=== PATIENT | female | born 1945 | race Caucasian/White ===

== ENCOUNTER 2018-04-01 12:16 | Outpatient (CLI) | payer MEDICARE | END 2018-04-01 12:17 | disposition home or self-care (01) | LOC: BICMAMMO 12:16 | PROVIDERS: ATTEND Nurse Practitioner Family | DX: Z12.31 Encounter for screening mammogram for malignant neoplasm of breast (principal); R92.1 Mammographic calcification found on diagnostic imaging of breast; Z80.3 Family history of malignant neoplasm of breast | CPT/HCPCS: 77063; 77067 ==

== ENCOUNTER 2018-12-11 11:05 | Outpatient (CLI) | payer MEDICARE ==
--- NOTE | 2018-12-11 11:33 | RAD ---
XR Knee Lt 4 View STANDARD HISTORY: Left knee pain FINDINGS: No fracture or dislocation is identified. There are degenerative changes manifested by osteophyte for mation and joint space narrowing.
== END 2018-12-11 11:06 | disposition home or self-care (01) ==
LOC: SCSRAD 11:05
PROVIDERS: ATTEND Nurse Practitioner Family
DX: M25.562 Pain in left knee (principal); E03.9 Hypothyroidism, unspecified; G61.82 Multifocal motor neuropathy; M25.762 Osteophyte, left knee

== ENCOUNTER 2019-04-02 10:15 | Outpatient (CLI) | payer MEDICARE ==
--- NOTE | 2019-04-02 13:51 | MMO ---
Bilateral MAMMO Bilat Screen [facility]. CLINICAL HISTORY: Patient is 73 years old and is seen for screening. The patient has the following family history of breast cancer: cousin female; paternal grandmother; maternal aunt and maternal grandmother, GREAT. The patient has no personal history of cancer. The patient has a history of right Excisional Biopsy in April, - benign. VIEWS: The views performed were: bilateral craniocaudal with tomosynthesis and bilateral mediolateral oblique with tomosynthesis. FILMS COMPARED: The present examination has been compared to prior imaging studies performed at [facility] on 03/20/2015, 03/21/2016, 03/25/2017 and 04/01/2018. This study has been interpreted with the assistance of computer-aided detection. MAMMOGRAM FINDINGS: The breasts are heterogeneously dense, which could obscure a lesion on mammography. There are stable benign appearing calcifications seen in both breasts. There are no suspicious masses, calcifications or areas of architectural distortion. There are no suspicious masses, suspicious calcifications, or new areas of architectural distortion. IMPRESSION: THERE IS NO MAMMOGRAPHIC EVIDENCE OF MALIGNANCY. A ROUTINE FOLLOW-UP MAMMOGRAM IN 1 YEAR IS RECOMMENDED. THE RESULTS OF THIS EXAM WERE SENT TO THE PATIENT. ACR BI-RADS Category 2 - Benign finding MAMMOGRAPHY NOTE: 1. A negative mammogram report should not delay a biopsy if a dominant of clinically suspicious mass is present. 2. Approximately 10% to 15% of breast cancers are not detected by mammography. 3. Adenosis and dense breasts may obscure an underlying neoplasm. Reported by: JADA FRAGOSO MD Electonically Signed: [id number]
== END 2019-04-02 10:16 | disposition home or self-care (01) ==
LOC: BICMAMMO 10:15
PROVIDERS: ATTEND Nurse Practitioner Family
DX: Z12.31 Encounter for screening mammogram for malignant neoplasm of breast (principal); Z91.89 Other specified personal risk factors, not elsewhere classified; Z80.3 Family history of malignant neoplasm of breast
CPT/HCPCS: 77063; 77067

== ENCOUNTER 2020-04-04 14:56 | Outpatient (CLI) | payer MEDICARE ==
--- NOTE | 2020-04-04 15:22 | MMO ---
Bilateral MAMMO Bilat Screen [facility]. CLINICAL HISTORY: Patient is 74 years old and is seen for screening. The patient has the following family history of breast cancer: cousin female; paternal grandmother; maternal aunt and maternal grandmother, GREAT. The patient has no personal history of cancer. The patient has a history of right Excisional Biopsy in April, - benign. VIEWS: The views performed were: bilateral craniocaudal with tomosynthesis and bilateral mediolateral oblique with tomosynthesis. FILMS COMPARED: The present examination has been compared to prior imaging studies performed at [facility] on 03/21/2016, 03/25/2017, 04/01/2018 and 04/02/2019. This study has been interpreted with the assistance of computer-aided detection. MAMMOGRAM FINDINGS: There are scattered fibroglandular densities. There are stable benign appearing calcifications seen in both breasts. There are no suspicious masses, calcifications or areas of architectural distortion. There are no suspicious masses, suspicious calcifications, or new areas of architectural distortion. IMPRESSION: THERE IS NO MAMMOGRAPHIC EVIDENCE OF MALIGNANCY. A ROUTINE FOLLOW-UP MAMMOGRAM IN 1 YEAR IS RECOMMENDED. THE RESULTS OF THIS EXAM WERE SENT TO THE PATIENT. ACR BI-RADS Category 2 - Benign finding MAMMOGRAPHY NOTE: 1. A negative mammogram report should not delay a biopsy if a dominant of clinically suspicious mass is present. 2. Approximately 10% to 15% of breast cancers are not detected by mammography. 3. Adenosis and dense breasts may obscure an underlying neoplasm. Reported by: CARA SIMS MD Electonically Signed: [id number]
== END 2020-04-04 14:57 | disposition home or self-care (01) ==
LOC: BICMAMMO 14:56
PROVIDERS: ATTEND Family Medicine
DX: Z12.31 Encounter for screening mammogram for malignant neoplasm of breast (principal); Z80.3 Family history of malignant neoplasm of breast; Z91.89 Other specified personal risk factors, not elsewhere classified
CPT/HCPCS: 77063; 77067

== ENCOUNTER 2021-04-05 12:34 | Outpatient (CLI) | payer MEDICARE | END 2021-04-05 12:35 | disposition home or self-care (01) | LOC: BICMAMMO 12:34 | PROVIDERS: ATTEND Family Medicine | DX: Z12.31 Encounter for screening mammogram for malignant neoplasm of breast (principal); Z80.3 Family history of malignant neoplasm of breast; Z91.89 Other specified personal risk factors, not elsewhere classified | CPT/HCPCS: 77063; 77067 ==

== ENCOUNTER 2022-05-06 09:38 | Outpatient (CLI) | payer MEDICARE ==
[2022-05-06 10:52] LABS: #Eosinphils 0.2 10x3/uL (0.0-0.5); #Monocytes 0.4 10x3/uL (0.0-1.1); #Neutrophils 4.1 10x3/uL (1.5-8.4); %Basophils 0.5 % (0.0-2.0); %Eosinophils 3.1 % (0.0-6.0); %Lymphocytes 26.6 % (18.0-47.0); %Monocytes 6.2 % (0.0-10.0); %Neutrophils 63.3 % (40.0-75.0); Hemoglobin 13.1 g/dL (12.0-15.5); Mean Corpuscular HGB CONC 34.1 g/dL (32.0-36.0); Mean Corpuscular Hemoglobin 32.1 pg (27.0-33.0); Mean Corpuscular Volume 94.1 fl (81.6-98.3); Mean Platelet Volume 9.5 fl (7.4-10.4); Platelet Count 277 10x3/uL (150-450); RBC Distribution Width 12.3 % (11.5-14.5); Red Blood Cell (RBC) Count 4.08 10x6/uL (3.90-5.03); White Blood Cell (WBC) Count 6.5 10x3/uL (3.5-10.5)
[2022-05-06 11:08] LABS: Prothrombin Time 10.5 sec (9.5-12.1)
[2022-05-06 11:23] LABS: Anion Gap 19 mmol/L (10-20); BUN (Urea Nitrogen) 14 mg/dL (9.8-20.1); Calc. Creatinine Clearance 0 mL/min (70-130); Calcium 10.2 mg/dL (7.8-10.44); Carbon Dioxide 20 mmol/L (23-31); Chloride 110 mmol/L (98-107); Estimated GFR 49; Glucose 102 mg/dL (83-110); Sodium 144 mmol/L (136-145)
== END 2022-05-06 09:39 | disposition home or self-care (01) ==
LOC: LABBT 09:38
PROVIDERS: ATTEND Orthopaedic Surgery
DX: Z01.818 Encounter for other preprocedural examination (principal); M17.12 Unilateral primary osteoarthritis, left knee
CPT/HCPCS: 80048; 85025; 85610; 87081; 93005; 93010

== ENCOUNTER 2022-06-10 09:48 | Outpatient (CLI) | payer MEDICARE ==
[2022-06-10 11:28] LABS: #Eosinphils 0.2 10x3/uL (0.0-0.5); #Monocytes 0.4 10x3/uL (0.0-1.1); #Neutrophils 5.5 10x3/uL (1.5-8.4); %Basophils 0.3 % (0.0-2.0); %Eosinophils 1.9 % (0.0-6.0); %Lymphocytes 22.1 % (18.0-47.0); %Monocytes 5.4 % (0.0-10.0); Hemoglobin 12.5 g/dL (12.0-15.5); Mean Corpuscular HGB CONC 34.1 g/dL (32.0-36.0); Mean Corpuscular Hemoglobin 32.9 pg (27.0-33.0); Mean Corpuscular Volume 96.6 fl (81.6-98.3); Platelet Count 262 10x3/uL (150-450); RBC Distribution Width 12.3 % (11.5-14.5); White Blood Cell (WBC) Count 7.8 10x3/uL (3.5-10.5)
[2022-06-10 11:37] LABS: Prothrombin Time 10.4 sec (9.5-12.1)
[2022-06-10 11:42] LABS: Anion Gap 18 mmol/L (10-20); BUN (Urea Nitrogen) 17 mg/dL (9.8-20.1); Calc. Creatinine Clearance 0 mL/min (70-130); Calcium 11.2 mg/dL (7.8-10.44); Carbon Dioxide 24 mmol/L (23-31); Chloride 106 mmol/L (98-107); Estimated GFR 49; Glucose 95 mg/dL (83-110); Potassium 4.1 mmol/L (3.5-5.1); Sodium 144 mmol/L (136-145)
== END 2022-06-10 09:49 | disposition home or self-care (01) ==
LOC: LABBT 09:48
PROVIDERS: ATTEND Orthopaedic Surgery
DX: Z01.818 Encounter for other preprocedural examination (principal); M17.12 Unilateral primary osteoarthritis, left knee
CPT/HCPCS: 80048; 85025; 85610; 87081; 93005; 93010

== ENCOUNTER 2022-06-11 05:34 | Inpatient (IN) | payer MEDICARE ==
[2022-06-10 11:06] VITALS: BMI 30.9
[2022-06-11] MEDS ORDERED: Sodium Chloride 0.9% 100 ML ONE ×2 (05:59→06:51)
[2022-06-11] MEDS ORDERED: Tranexamic Acid 1,000 MG/10 ML VIAL ONE (05:59)
[2022-06-11] MEDS ORDERED: Vancomycin (BATCH) 1.5 GRAM/300 ML BAG ONE (06:05)
[2022-06-11] MEDS ORDERED: Vancomycin 1.5 GRAM/300 ML BAG 1.5 GM in Premix Bag 1 BAG IVPB SCH (06:15)
[2022-06-11] MEDS ORDERED: Bupivacaine PF 0.5% 30 ML VIAL ONE ×2 (06:26→06:37)
[2022-06-11] MEDS ORDERED: Fentanyl 100 MCG/2 ML VIAL ONE ×2 (06:37→09:02)
[2022-06-11] MEDS ORDERED: Midazolam HCl 2 mg/2 ml Vial ONE (06:37)
[2022-06-11 06:42] LABS: SARS-CoV-2 NAA Rapid Test Not Detected (NotDetected)
[2022-06-11] MEDS ORDERED: Bupivacaine HCl 0.5%/Epinephrine 1:200,000/PF 30 ml Vial ONE (06:45)
[2022-06-11] MEDS ORDERED: CEFAZOLIN 2 GM VIAL ONE (06:51)
[2022-06-11] MEDS ORDERED: Morphine 2 MG/ML VIAL SLOW IVP PRN (07:02)
[2022-06-11] MEDS ORDERED: HYDROcodone/Acetaminophen 10/325 mg Tablet PO PRN ×3 (07:02→09:15)
[2022-06-11] MEDS ORDERED: Acetaminophen 325 MG TAB PO PRN (07:02)
[2022-06-11] MEDS ORDERED: Promethazine HCl 25 MG/ML VIAL IM PRN ×3 (07:02→09:15)
[2022-06-11] MEDS ORDERED: diphenhydrAMINE 25 MG CAP PO PRN (07:02)
[2022-06-11] MEDS ORDERED: Ondansetron PF 4 MG/2 ML Vial IVP PRN ×2 (07:02→09:15)
[2022-06-11] MEDS ORDERED: Zolpidem Tartrate 5 MG TAB PO PRN ×2 (07:02→09:15)
[2022-06-11] MEDS ORDERED: fentaNYL PF 100 MCG/2 ML SYRINGE ONE (07:07)
[2022-06-11] MEDS ORDERED: Meclizine HCl 25 MG TAB PO SCH (07:15)
[2022-06-11] MEDS ORDERED: PROPOFOL 200 MG/20 ML VIAL ONE (07:17)
[2022-06-11] MEDS ORDERED: Lidocaine 1% PF 5 ML VIAL ONE (07:17)
[2022-06-11] MEDS ORDERED: Metoclopramide HCl 10 MG/2 ML VIAL ONE (07:17)
[2022-06-11] MEDS ORDERED: ePHEDrine 50 MG/ML VIAL ONE (07:17)
[2022-06-11] MEDS ORDERED: Ondansetron PF 4 MG/2 ML Vial ONE (07:17)
[2022-06-11] MEDS ORDERED: PHENYLEPHRINE-NS 100 MCG/ML 10 ML SYRINGE ONE (07:17)
[2022-06-11] MEDS ORDERED: PACU-Morphine 4MG/ML VIAL SLOW IVP PRN (07:51)
[2022-06-11] MEDS ORDERED: Fentanyl 100 MCG/2 ML VIAL IV PRN (09:06)
[2022-06-11] MEDS ORDERED: Ropivacaine 0.2% 550 ML 550 ML NERVE BLCK SCH (09:15)
[2022-06-11] MEDS ORDERED: traMADol HCl 50 MG TAB PO PRN ×2 (09:15)
[2022-06-11] MEDS ORDERED: Ketorolac Tromethamine 30 MG/ML VIAL ONE (12:19)
[2022-06-11] MEDS: Ketorolac Tromethamine 30 MG/ML VIAL IVP SCH ×5 (12:23→23:31)
[2022-06-11] MEDS: Cholecalciferol 1,000 UNITS (25 MCG) TAB PO SCH (13:04)
[2022-06-11] MEDS: Aspirin 81 mg Enteric Coated Tablet PO SCH ×2 (13:04→20:23)
[2022-06-11] MEDS: Carvedilol 6.25 MG TAB PO SCH (13:04)
[2022-06-11] MEDS: Sodium Chloride 0.9% 1,000 ML IV SCH ×2 (13:04→18:05)
[2022-06-11] MEDS: metFORMIN 500 MG TAB PO SCH ×2 (13:04→18:05)
[2022-06-11] MEDS: Famotidine 20 MG TAB PO SCH ×2 (13:05→20:22)
[2022-06-11] MEDS: traMADol HCl 50 MG TAB PO SCH ×3 (13:05→20:23)
[2022-06-11] MEDS: CEFAZOLIN 2 GM in Sodium Chloride 0.9% 100 ML IVPB SCH ×2 (14:37→23:31)
[2022-06-11] MEDS: Amlodipine 5 MG TAB PO SCH (20:22)
[2022-06-11] MEDS: Simvastatin 10 MG TAB PO SCH (20:22)
[2022-06-11] MEDS: Diazepam 5 MG TAB PO SCH (20:23)
[2022-06-12] MEDS: HYDROcodone/Acetaminophen 10/325 mg Tablet PO PRN ×3 (00:19→17:25)
[2022-06-12] MEDS: Sodium Chloride 0.9% 1,000 ML IV SCH ×3 (02:24→23:27)
[2022-06-12] MEDS: Levothyroxine Sodium 112 MCG TAB PO SCH (05:45)
[2022-06-12] MEDS: Ketorolac Tromethamine 30 MG/ML VIAL IVP SCH ×6 (05:46→23:26)
[2022-06-12 06:31] LABS: Hemoglobin 9.5 g/dL (12.0-16.0); Mean Corpuscular HGB CONC 34.3 g/dL (32.0-36.0); Mean Corpuscular Hemoglobin 33.5 pg (27.0-31.0); Mean Corpuscular Volume 97.6 fl (78.0-98.0); Mean Platelet Volume 7.4 fL (7.4-10.4); Platelet Count 163 10x3/uL (130-400); RBC Distribution Width 11.6 % (11.5-14.5); Red Blood Cell (RBC) Count 2.84 mill/uL (4.20-5.40)
[2022-06-12] MEDS: Multivitamin W/ Minerals 1 TAB PO SCH (08:12)
[2022-06-12] MEDS: Senokot S 8.6-50 MG TAB PO SCH ×2 (08:12→20:20)
[2022-06-12] MEDS: Ferrous Gluconate 324 MG TAB PO SCH ×2 (08:12→17:25)
[2022-06-12] MEDS: metFORMIN 500 MG TAB PO SCH ×2 (08:12→17:25)
[2022-06-12] MEDS: Famotidine 20 MG TAB PO SCH ×2 (08:13→20:24)
[2022-06-12] MEDS: Aspirin 81 mg Enteric Coated Tablet PO SCH ×2 (08:13→20:24)
[2022-06-12] MEDS: traMADol HCl 50 MG TAB PO SCH ×3 (08:13→20:21)
[2022-06-12] MEDS: Cholecalciferol 1,000 UNITS (25 MCG) TAB PO SCH (08:14)
[2022-06-12] MEDS: Carvedilol 6.25 MG TAB PO SCH (08:14)
[2022-06-12] MEDS: Amlodipine 5 MG TAB PO SCH (20:23)
[2022-06-12] MEDS: Diazepam 5 MG TAB PO SCH (20:25)
[2022-06-12] MEDS: Simvastatin 10 MG TAB PO SCH (23:27)
[2022-06-13] MEDS: Ketorolac Tromethamine 30 MG/ML VIAL IVP SCH ×4 (03:10→14:17)
[2022-06-13] MEDS: Levothyroxine Sodium 112 MCG TAB PO SCH (05:43)
[2022-06-13 06:15] LABS: Hemoglobin 9.6 g/dL (12.0-16.0); Mean Corpuscular Hemoglobin 33.3 pg (27.0-31.0); Mean Corpuscular Volume 97.7 fl (78.0-98.0); Mean Platelet Volume 7.6 fL (7.4-10.4); Platelet Count 172 10x3/uL (130-400); RBC Distribution Width 11.4 % (11.5-14.5); Red Blood Cell (RBC) Count 2.88 mill/uL (4.20-5.40); White Blood Cell (WBC) Count 7.5 10x3/uL (4.8-10.8)
[2022-06-13] MEDS: Ferrous Gluconate 324 MG TAB PO SCH (08:23)
[2022-06-13] MEDS: Cholecalciferol 1,000 UNITS (25 MCG) TAB PO SCH (08:23)
[2022-06-13] MEDS: Senokot S 8.6-50 MG TAB PO SCH (08:23)
[2022-06-13] MEDS: metFORMIN 500 MG TAB PO SCH (08:24)
[2022-06-13] MEDS: Famotidine 20 MG TAB PO SCH (08:24)
[2022-06-13] MEDS: traMADol HCl 50 MG TAB PO SCH ×2 (08:25→14:13)
[2022-06-13] MEDS: Multivitamin W/ Minerals 1 TAB PO SCH (08:25)
[2022-06-13] MEDS: Aspirin 81 mg Enteric Coated Tablet PO SCH (08:25)
[2022-06-13] MEDS: Carvedilol 6.25 MG TAB PO SCH (08:25)
[2022-06-13] MEDS: Sodium Chloride 0.9% 1,000 ML IV SCH (09:21)
[2022-06-13 13:29] VITALS: BP 115/63; TEMP 97.6
== END 2022-06-13 15:56 | disposition home or self-care (01) | DRG 470 ==
LOC: SDC 05:34 → SJJU 13:13 → OBSVTOIN 06-13 14:36
PROVIDERS: ADMIT Orthopaedic Surgery; ATTEND Orthopaedic Surgery
PROC: 0SRD0J9 Replacement of Left Knee Joint with Synthetic Substitute, Cemented, Open Approach (ICD-10-PCS; principal; 2022-06-11)
DX: M17.12 Unilateral primary osteoarthritis, left knee (principal); J45.909 Unspecified asthma, uncomplicated; G43.909 Migraine, unspecified, not intractable, without status migrainosus; E11.9 Type 2 diabetes mellitus without complications; F41.9 Anxiety disorder, unspecified; E78.00 Pure hypercholesterolemia, unspecified; I11.9 Hypertensive heart disease without heart failure; Z20.822 Contact with and (suspected) exposure to COVID-19; E03.9 Hypothyroidism, unspecified; Z90.49 Acquired absence of other specified parts of digestive tract; Z98.890 Other specified postprocedural states; Z90.89 Acquired absence of other organs; Z95.0 Presence of cardiac pacemaker; Z95.1 Presence of aortocoronary bypass graft; Z79.899 Other long term (current) drug therapy; Z79.84 Long term (current) use of oral hypoglycemic drugs; Z82.49 Family history of ischemic heart disease and other diseases of the circulatory system; Z80.1 Family history of malignant neoplasm of trachea, bronchus and lung
CPT/HCPCS: 36415; 36416; 85027; 96374; 96375; 96376; A4306; C1713; C1776; G0378; J1885; J2250; J2405; J2704; J2765; J2795; J3010; J3370; J3490; S0020; U0002

== ENCOUNTER 2025-04-13 11:45 | Outpatient (CLI) | payer OTHER | END 2025-04-13 11:46 | disposition home or self-care (01) | LOC: ULT 11:45 | PROVIDERS: ATTEND Internal Medicine Nephrology | DX: N18.30 Chronic kidney disease, stage 3 unspecified (principal) | CPT/HCPCS: 76770 ==